=== PATIENT | female | born 1985 | race Caucasian/White ===

== ENCOUNTER → 2016-12-25 | Outpatient (CLI) | payer BC ==
[~2016-12-25] MED LIST: ESCI1TAB10 PO; FEXO1TAB58 PO; FEXO5TAB2 PO; HYDR-5688 PO; IBUP1CAP9 PO; LORA-741 PO; LYSI500C2 PO; MULT-506 PO; OPTIRAY 320 IV PRN; VALA500T60 PO; VENL150C56 PO; lysine PO
--- NOTE | 2016-12-25 14:30 | DIAGNOSTIC IMAGING REPORT ---
CT OF THE PELVIS WITH CONTRAST CT DOSE: 850.15 mGy.cm CLINICAL HISTORY: Right groin pain. Right leg numbness following schwannoma resection. TECHNIQUE: Axial images of the pelvis and hips were obtained following intravenous injection of 87 cc of Optiray 320 IV. COMPARISON STUDY: CT of the right hip August 23, 2016. FINDINGS: There is a 3 mm calculus within the lower pole of the left kidney. No ureteral calculi are identified. There is a dominant follicle within the left ovary. There are expected postsurgical findings within the right inguinal region. The right inguinal lesion shown on exam of August 23, 2016 has been resected. No residual mass identified by CT. No enlarged pelvic or inguinal lymph nodes are identified. The ovaries are not enlarged. Skeletal structures are unremarkable. A marker was placed on the skin at site of palpable abnormality. There is a corresponding 1.2 cm subcutaneous lesion of the right labia majora shown on image 316 of [id number]. This likely reflects the palpable abnormality. IMPRESSION: 1. Expected findings following resection of right inguinal mass. No residual mass identified by CT. 2. 1.2 cm subcutaneous lesion of the right labia majora which reflects the palpable abnormality. This subcutaneous lesion is indeterminate and clinical follow up to ensure stability/resolution is recommended. This could reflect a cyst or solid lesion. Electronically signed by: Henry Bruno M.D. 12/25/2016 2:29 PM Dictated Date/Time: 12/25/2016 1:20 PM
== END | disposition home or self-care (01) ==
LOC: C.CTS 12:16
PROVIDERS: ATTEND Surgery
DX: R20.0 Anesthesia of skin (principal); R10.30 Lower abdominal pain, unspecified; S84.90XA Injury of unspecified nerve at lower leg level, unspecified leg, initial encounter; X58.XXXA Exposure to other specified factors, initial encounter

== ENCOUNTER → 2017-01-12 | Day surgery (SDC) | payer BC ==
[2017-01-11 10:10] VITALS: Ht 170.2 cm; Wt 97.7 kg
[~2017-01-12] VITALS: Ht 170.2 cm; Wt 97.7 kg
[~2017-01-12] MED LIST changes: +ATROPINE SULFATE 0.1 MG/ML 5ML SYR IV PRN; +BUPIVACAINE/EPINEPHRINE 0.5% MPF 1:200,000 30 ML VIAL ONE; +DEXAMETHASONE SOD INJ 4 MG/ML VIAL IV PRN; +DEXAMETHASONE SOD INJ 4 MG/ML VIAL ONE; -ESCI1TAB10 PO; +EpHEDrine SULFATE INJ 50 MG/ML AMP IV PRN; +FENTANYL CITRATE INJ 50 MCG/1 ML 2 ML VIAL IV PRN; +FENTANYL CITRATE INJ 50 MCG/1 ML 2 ML VIAL ONE; -FEXO5TAB2 PO; +HYDROCODONE/ACETAMOPHEN 5/325MG TAB PO PRN; -IBUP1CAP9 PO; +KETOROLAC TROMETHAMINE 30 MG/ML VIAL IV. PRN; +LABETALOL HCL IV 5 MG/ML 20ML IV PRN; +LACTATED RINGER'S 1000ML 1,000 ML IV SCH; +LIDOCAINE HCL 2% 2 ML VIAL (20MG/ML) ONE; +METOCLOPRAMIDE HCL INJ 5 MG/ML 2 ML VIAL IV PRN; +MIDAZOLAM HCL 1 MG/ML 2ML VIAL ONE; +MoRPHine SULFATE 10 MG/ML CARP/VIAL IV PRN; +ONDANSETRON INJ 2 MG/ML 2 ML VIAL IV PRN; +ONDANSETRON INJ 2 MG/ML 2 ML VIAL ONE; -OPTIRAY 320 IV PRN; +PHENYLEPHRINE 100MCG/ML 5ML SYR IV PRN; +PROPOFOL IV EMULSION 10 MG/ML 20 ML VIAL IV ONE; +SILVER SULFADIAZINE 1% CR 50 GM JAR EXT ONE; +SODIUM CHLORIDE 0.9% 1000ML 1,000 ML IV SCH; -lysine PO
[2017-01-12] MEDS: CLINDAMYCIN PHOS 150 MG/ML 2 ML VIAL IV SCH ×3 (10:24→11:16)
--- NOTE | 2017-01-12 11:50 | History & Physical Bridge Note ---
H&P Re-Evaluation Bridge Note: I have examined the patient, reviewed the History & Physical and in the interval since the performance of the History & Physical I have noted the following changes of clinical significance: pt noted a painful nevi on her right upper back that she would like to have excised as well. otherwise no changes.
--- NOTE | 2017-01-12 11:54 | Discharge Instructions ---
Discharge Instructions Date of Service Jan 12, 2017. Admission Reason for Admission: Labial Cyst, Skin Nevi Discharge Discharge Diagnosis / Problem: Labial Cyst, Skin Nevi Discharge Goals Goal(s): Decrease discomfort, Improve function Activity Recommendations Activity Limitations: as noted below Lifting Limitations: no more than 10 pounds Exercise/Sports Limitations: until after follow-up appointment May Resume Sexual Activity: after follow-up appointment Shower/Bathe: tomorrow . Instructions / Follow-Up Instructions / Follow-Up Please follow-up with Dr. Gates in the office in 1-2 weeks. Any questions or concerns please call the office at [phone]. Current Hospital Diet Patient's current hospital diet: Discharge Diet Recommended Diet: Regular Diet Pending Studies Studies pending at discharge: no Medical Emergencies . Who to Call and When: Medical Emergencies: If at any time you feel your situation is an emergency, please call 911 immediately. . Non-Emergent Contact Non-Emergency issues call your: Primary Care Provider, Surgeon Call Non-Emergent contact if: temperature is above 101.5, your pain is not controlled, wound has increased drainage, wound has increased redness . "Provider Documentation" section prepared by Kaykay Shelton. VTE Core Measure Inpt VTE Proph given/why not?: Unfractionated heparin SQ, SCD's
--- NOTE | 2017-01-12 12:58 | [facility] Operative Report ---
Operative Report Operative Date Jan 12, 2017. Pre-Operative Diagnosis Groin Cyst, Back Nevi, Multiple Skin Tags Post-Operative Diagnosis 1 cm back nevi; 2 cm cyst right groin; nevi left thigh; multiple small skin Procedure(s) Performed excision of back nevi, right groin nevi, left thigh nevi and multiple groin skin tages Surgeon Dr. Gates Finance Administrator Surgeon(s) Sung Shelton PA-C Estimated Blood Loss 5ml Findings as above. all benign appearing tags/cysts Specimens A. Right Back Nevi B. Right Groin Cyst C. Left Thigh Mole Anesthesia LMA Complication(s) None Disposition Recovery Room / PACU I attest to the content of the Intraoperative Record and any orders documented therein. Any exceptions are noted below.
--- NOTE | 2017-01-12 13:01 | Medical Student: [facility] ---
Immediate Operative Summary Operative Date Jan 12, 2017. Pre-Operative Diagnosis Right Groin Cyst, Perineal skin tags, Right Back Nevi, Left thigh mole Post-Operative Diagnosis Same Procedure(s) Performed Excision of right groin cyst, perineal skin tags, left thigh mole and right back nevi. Surgeon Dr. Gates Training Development Manager Surgeon(s) None Estimated Blood Loss 5 cc Findings Right groin cyst, perineal skin tags, right back nevi, left thigh mole Fluids (cc crystalloids) 1,000 cc Specimens Left Thigh Mole Right Back Nevi Right Groin Cyst Drains None Anesthesia General/LMA Complication(s) None Disposition Recovery Room / PACU
--- NOTE | 2017-01-12 13:14 | OPERATIVE REPORT ---
DATE OF OPERATION: 01/12/2017 PREOPERATIVE DIAGNOSIS: Back nevi, a right groin cyst, a left groin nevi and multiple skin tags in the groin area. POSTOPERATIVE DIAGNOSIS: Same. PROCEDURE: Excision of all of the above. SURGEON: Dr. Gates. SENIOR MANUFACTURING TECHNICIAN: Kaykay Shelton PA-C. ESTIMATED BLOOD LOSS: Approximately 5 mL. COMPLICATIONS: No immediate. ANESTHESIA: General laryngeal mask airway. DESCRIPTION OF PROCEDURE: After informed consent was obtained, the patient was taken to the operating suite and placed in supine position. After successful placement of laryngeal mask airway, we began by rolling the patient placing a beanbag under her right hip, exposing the right upper back. We sterilely prepped and draped in usual fashion. A 10 blade scalpel was used to make a small ellipse of skin around the visible nevi. Sharp knife dissection was used to remove it full thickness and send it to pathology. Wound was irrigated and closed using 3-0 nylon in simple interrupted fashion. Some Marcaine was injected around the area followed by a sterile dressing. We then repositioned the patient back into a prone position with the legs in a frogleg position. We sterilely prepped and draped the entire groin region. Began with a small skin tag which I was able to excise using a 15 blade scalpel and placed a couple interrupted 4-0 Prolene sutures to close it primarily. I then made an ellipse around a large soft tissue cyst in the right groin region. We again removed the full thickness and intact. I irrigated the wound and closed it using simple interrupted 4-0 Prolene. There was also an abnormal appearing skin mole in the left inner thigh area. Same technique, I used ellipse elliptical incision around it, removed the full thickness and closed it primarily using 4-0 Prolene in simple interrupted fashion. There were then multiple small soft tissue skin tags and small little skin cysts. I used cautery to simply fulgurate them. None of them required suturing, etc. We then placed some Silvadene cream over the burned areas, injected the rest with Marcaine with epinephrine for postoperative analgesia. Sterile dressing was applied. The patient was awakened, extubated, and transferred to recovery in stable condition. I attest to the content of the Intraoperative Record and any orders documented therein. Any exceptio ns are noted below.
[2017-01-12 13:36] VITALS: TEMP 37
[2017-01-12 13:56] VITALS: BP 134/86; PULSE 65; O2SAT 100
--- NOTE | 2017-01-12 14:01 | Anesthesia Progress Nt - [facility] ---
Anesthesia Post Op Note Date & Time Jan 12, 2017 at 14:01 Vital Signs Pain Intensity: 2 Vital Signs Past 12 Hours Date Time Temp Pulse Resp B/P Pulse Ox O2 Delivery O2 Flow Rate FiO2 01/12/17 13:56 65 16 134/86 100 Room Air 01/12/17 13:38 59 21 100 01/12/17 13:38 57 21 01/12/17 13:36 37.0 66 20 144/82 100 Room Air 01/12/17 13:35 133/81 01/12/17 13:33 54 15 01/12/17 13:33 53 15 100 01/12/17 13:30 144/84 01/12/17 13:28 36.8 59 24 137/87 Room Air 01/12/17 13:28 55 12 100 01/12/17 13:28 54 12 01/12/17 13:27 67 15 01/12/17 13:27 67 15 100 01/12/17 13:25 137/87 01/12/17 13:22 56 16 100 01/12/17 13:22 57 16 01/12/17 13:21 65 18 01/12/17 13:21 67 18 100 01/12/17 13:20 134/87 01/12/17 13:16 53 15 100 01/12/17 13:16 53 15 01/12/17 13:15 52 17 01/12/17 13:15 52 17 01/12/17 13:15 52 17 130/89 100 01/12/17 13:15 52 17 130/89 100 01/12/17 13:10 65 16 136/86 100 01/12/17 13:10 67 16 01/12/17 13:10 65 16 136/86 100 01/12/17 13:10 67 16 01/12/17 13:05 63 14 01/12/17 13:05 60 14 142/86 97 01/12/17 13:05 63 14 01/12/17 13:05 60 14 142/86 97 01/12/17 13:00 59 15 139/85 100 01/12/17 13:00 60 15 01/12/17 13:00 59 15 139/85 100 01/12/17 13:00 60 15 01/12/17 12:55 36.6 63 20 128/79 100 Mask 6 01/12/17 12:55 61 01/12/17 12:55 61 128/79 99 01/12/17 12:55 61 01/12/17 12:55 61 128/79 99 01/12/17 10:09 36.9 62 16 127/85 100 Room Air Notes Mental Status: alert / awake / arousable, participated in evaluation Pt Amnestic to Procedure: Yes Nausea / Vomiting: adequately controlled Pain: adequately controlled Airway Patency, RR, SpO2: stable & adequate BP & HR: stable & adequate Hydration State: stable & adequate Anesthetic Complications: no major complications apparent
== END | disposition home or self-care (01) ==
LOC: X.SURG 08:50
PROVIDERS: ATTEND Surgery
DX: D22.9 Melanocytic nevi, unspecified (principal); L72.3 Sebaceous cyst; D23.70 Other benign neoplasm of skin of unspecified lower limb, including hip; D36.10 Benign neoplasm of peripheral nerves and autonomic nervous system, unspecified; F41.9 Anxiety disorder, unspecified; N76.0 Acute vaginitis

== ENCOUNTER 2017-01-29 09:50 | Emergency (ER) | payer BC ==
[~2017-01-29] VITALS: Ht 170.2 cm; Wt 97.6 kg
[~2017-01-29 09:50] MED LIST changes: -ATROPINE SULFATE 0.1 MG/ML 5ML SYR IV PRN; -BUPIVACAINE/EPINEPHRINE 0.5% MPF 1:200,000 30 ML VIAL ONE; -DEXAMETHASONE SOD INJ 4 MG/ML VIAL IV PRN; -DEXAMETHASONE SOD INJ 4 MG/ML VIAL ONE; -EpHEDrine SULFATE INJ 50 MG/ML AMP IV PRN; -FENTANYL CITRATE INJ 50 MCG/1 ML 2 ML VIAL IV PRN; -FENTANYL CITRATE INJ 50 MCG/1 ML 2 ML VIAL ONE; -HYDR-5688 PO; -HYDROCODONE/ACETAMOPHEN 5/325MG TAB PO PRN; -KETOROLAC TROMETHAMINE 30 MG/ML VIAL IV. PRN; -LABETALOL HCL IV 5 MG/ML 20ML IV PRN; -LACTATED RINGER'S 1000ML 1,000 ML IV SCH; -LIDOCAINE HCL 2% 2 ML VIAL (20MG/ML) ONE; -METOCLOPRAMIDE HCL INJ 5 MG/ML 2 ML VIAL IV PRN; -MIDAZOLAM HCL 1 MG/ML 2ML VIAL ONE; -MoRPHine SULFATE 10 MG/ML CARP/VIAL IV PRN; -ONDANSETRON INJ 2 MG/ML 2 ML VIAL IV PRN; -ONDANSETRON INJ 2 MG/ML 2 ML VIAL ONE; -PHENYLEPHRINE 100MCG/ML 5ML SYR IV PRN; -PROPOFOL IV EMULSION 10 MG/ML 20 ML VIAL IV ONE; -SILVER SULFADIAZINE 1% CR 50 GM JAR EXT ONE; -SODIUM CHLORIDE 0.9% 1000ML 1,000 ML IV SCH; -VENL150C56 PO
[2017-01-29 10:04] VITALS: TEMP 36.8; Ht 170.2 cm; Wt 97.6 kg
[2017-01-29 11:26] LABS: HEMATOCRIT 44.5 % (37-47); MEAN CELL VOLUME 96.7 fL (80-100); MEAN CORPUSCULAR HEMOGLOBIN 31.1 pg (25-34); MEAN CORPUSCULAR HGB CONC 32.1 g/dl (32-36); MEAN PLATELET VOLUME 9.7 fL (7.4-10.4); PLATELET COUNT 244 K/uL (130-400); WHITE BLOOD COUNT 11.56 K/uL (4.8-10.8)
[2017-01-29 11:33] LABS: BUN/CREATININE RATIO 14.8 (10-20); CREATININE 0.82 mg/dl (0.60-1.20); POTASSIUM 3.8 mmol/L (3.5-5.1)
[2017-01-29 11:37] LABS: URINE APPEARANCE CLEAR (CLEAR); URINE BILIRUBIN NEG (NEG); URINE COLOR YELLOW; URINE NITRITE NEG (NEG); URINE SPECIFIC GRAVITY 1.013 (1.000-1.030); UROBILINOGEN NEG (NEG)
--- NOTE | 2017-01-29 11:38 | EMERGENCY ROOM VISIT NOTE ---
History Report prepared by Ken: Tyler Peace Under the Supervision of: Dr. Kenya Pang D.O. First contact with patient: 10:53 Chief Complaint: ED VAG BLEEDING Stated Complaint: DIZZINESS,WEAKNESS Nursing Triage Summary: States increased bleeding with her cycle and feels dizzy. History of Present Illness The patient is a 31 year old female who presents to the Emergency Room with complaints of persistent vaginal bleeding that began one week ago. The patient states that she started her normal menstrual cycle one week ago. She states that typically it doesn't last longer than one week, and additionally notes that her cycle was heavier than normal. The patient states that the bleeding has slowed, but notes that she was still experiencing light bleeding. The patient states that this morning she had intercourse and after she developed gushing blood and passed one large clot. She states that she became weak and dizzy. The patient states that this has happened in the past, but denies it ever being this severe. She denies any history of anemia or previous blood transfusion. The patient denies any abdominal pain. She notes a recent sore throat and stuffy nose. The patient notes a history of a tubal ligation. Source of History: patient Onset: one week ago Position: other (vaginal) Quality: other (bleeding) Timing: other (persistent) Associated Symptoms: + weakness, No abdominal pain Note: Associated Symptoms: Dizziness Review of Systems See HPI for pertinent positives & negatives. A total of 10 systems reviewed and were otherwise negative. Past Medical & Surgical Surgical Problems: (1) Tubal ligation status Family History Diabetes mellitus Hypertension Social History Smoking Status: Never Smoker Alcohol Use: occasionally Marital Status: Housing Status: lives with family Occupation Status: employed Current/Historical Medications Scheduled Fexofenadine-Pseudoephedrine (Joyce-D 24 Hour Allergy), 1 TAB PO QAM Lysine (Lysine), 1 CAP PO QAM Multivitamin (Multivitamin), 1 TAB PO QAM Valacyclovir (Valtrex), 1 TAB PO QAM Scheduled PRN Lorazepam (Ativan), 0.5 MG PO BID PRN for Anxiety Allergies Coded Allergies: Sulfa Antibiotics (Verified Allergy, Intermediate, ITCHING, 01/12/17) Sulfamethoxazole w/Trimethoprim (Verified Allergy, Intermediate, ITCHING, 01/12/17) Amoxicillin (Verified Adverse Reaction, Unknown, doesnt work, 01/12/17) Penicillins (Verified Adverse Reaction, Unknown, "doesn't do anything for me", 01/12/17) Physical Exam Vital Signs Date Time Temp Pulse Resp B/P Pulse Ox O2 Delivery O2 Flow Rate FiO2 01/29/17 15:06 65 18 136/73 100 Room Air 01/29/17 13:50 58 18 130/53 100 01/29/17 11:31 67 19 116/82 100 Room Air 01/29/17 11:29 67 19 116/82 100 Room Air 70 126/79 94 143/84 01/29/17 10:04 36.8 76 16 153/95 98 Room Air Physical Exam HEENT: Head - normocephalic and atraumatic Pupils are equal, round, and reactive to light. Extraocular eye muscles are intact, conjunctival pallor, and sclera are anicteric. Nose - moist nasal mucosa without discharge. Mouth - moist buccal mucosa. Oropharynx is nonerythematous and there is no tonsillar exudate or edema noted. Neck: Supple; no JVD, nuchal rigidity, cervical lymphadenopathy. Heart: Regular rate and rhythm. There is a normal S1 and S2 with no murmurs, clicks, or gallops appreciated. Lungs: Clear to auscultation bilaterally with no wheezes, rales, or rhonchi. Abdomen: Soft, completely nontender, nondistended, with good bowel sounds. There are no palpable pulsatile masses or hepatosplenomegaly. There is no guarding, rigidity, or rebound noted. Extremities: No evidence of cyanosis, clubbing, or edema. There are easily palpable peripheral pulses. Skin: Skin appears pale, warm and dry with good turgor and no rashes. Medical Decision & Procedures ER Provider Diagnostic Interpretation: US results as stated below per my review and radiologist interpretation: PELVIC ULTRASOUND CLINICAL HISTORY: Heavy vaginal bleeding. COMPARISON STUDY: CT of the pelvis December 25, 2016. TECHNIQUE: Transabdominal and transvaginal sonography of the pelvis was performed. FINDINGS: The uterus measures 8.7 x 4.8 x 5.6 cm. The endometrium is normal in thickness, measuring 4 mm. A few nabothian cysts are noted. There is a possible small 1.5 cm right fundal fibroid. This is likely mural in location. The ovaries are sonographically normal. There is no free fluid. IMPRESSION: 1. Normal endometrial thickness of 4 mm. 2. Possible small 1.5 cm right fundal fibroid, likely mural in location. 3. Unremarkable sonographic appearance of the ovaries. Electronically signed by: Henry Bruno M.D. 01/29/2017 1:38 PM Dictated Date/Time: 01/29/2017 1:31 PM Laboratory Results 01/29/17 10:30 01/29/17 10:30 Test 01/29/17 10:20 01/29/17 10:30 Urine Color YELLOW Urine Appearance CLEAR (CLEAR) Urine pH 6.0 (4.5-7.5) Urine Specific Silver 1.013 (1.000-1.030) Urine Protein NEG (NEG) Urine Glucose (UA) NEG (NEG) Urine Ketones NEG (NEG) Urine Occult Blood 2+ (NEG) Urine Nitrite NEG (NEG) Urine Bilirubin NEG (NEG) Urine Urobilinogen NEG (NEG) Urine Leukocyte Esterase SMALL (NEG) Urine WBC (Auto) 1-5 /hpf (0-5) Urine RBC (Auto) >30 /hpf (0-4) Urine Hyaline Casts (Auto) 0 /lpf (0-5) Urine Epithelial Cells (Auto) 5-10 /lpf (0-5) Urine Bacteria (Auto) NEG (NEG) Urine Test NEG (NEG) Red Blood Count 4.60 M/uL (4.2-5.4) Mean Corpuscular Volume 96.7 fL (80-100) Mean Corpuscular Hemoglobin 31.1 pg (25-34) Mean Corpuscular Hemoglobin Concent 32.1 g/dl (32-36) RDW Standard Deviation 48.9 fL (36.4-46.3) RDW Coefficient of Variation 13.8 % (11.5-14.5) Mean Platelet Volume 9.7 fL (7.4-10.4) Anion Gap 7.0 mmol/L (3-11) Est Creatinine Clear Calc Drug Dose 117.1 ml/min Estimated GFR () 109.0 Estimated GFR (Non- 94.0 BUN/Creatinine Ratio 14.8 (10-20) Calcium Level 9.0 mg/dl (8.5-10.1) Laboratory results per my review. ED Course 1119: Past medical records reviewed. The patient was evaluated in room C3. A complete history and physical exam was performed. IV lock was initiated and labs were drawn as above. Orthostatic vital signs revealed that the blood pressure didn't' drop with standing. 1240:I reevaluated the patient and she has had no further heavy bleeding and she is feeling fine. I reviewed the results and laboratory studies with her. She is going to have a pelvic ultrasound. 1450: I reevaluated the patient and she is doing well. I discussed the exam findings with her and I discussed he treatment plan. She verbalized complete understanding and agreement. She is ready to go home. Medical Decision The patient is a 31 year old female who presents to the ED with vaginal bleeding. Differential diagnosis includes anemia, dysfunctional uterine bleeding , uterine fibroid, . Lab interpretation: white blood cell count 11.5, stable H&H, normal renal function, slightly low glucose 67,urine is negative, urinalysis showed blood. This is a 31-year-old male patient is had some irregular vaginal bleeding over the past couple days that became much heavier today after having intercourse. The patient's vital signs are stable. She was not anemic. Ultrasound showed a possible fibroid but no other obvious or concerning findings. The patient's test was negative. I've asked patient to follow-up with her smearer. If the bleeding becomes heavy again she should return to the ER. Impression Primary Impression: Abnormal uterine bleeding Scribe Attestation The scribe's documentation has been prepared under my direction and personally reviewed by me in its entirety. I confirm that the note above accurately reflects all work, treatment, procedures, and medical decision making performed by me. Departure Information Dispostion Home / Self-Care Referrals Jerman Olivares M.D. (PCP) Forms HOME CARE DOCUMENTATION FORM, IMPORTANT VISIT INFORMATION, WORK / SCHOOL INSTRUCTIONS Patient Instructions [facility] [place] [facility] Additional Instructions Rest. No strenuous activity. Follow up with [facility] obstetrics gyn. Return to the ER if bleeding heavy again.
[2017-01-29 11:39] LABS: MANUAL MICROSCOPIC REQUIRED? NO; REVIEW REQ? NO
--- NOTE | 2017-01-29 13:39 | DIAGNOSTIC IMAGING REPORT ---
PELVIC ULTRASOUND CLINICAL HISTORY: Heavy vaginal bleeding. COMPARISON STUDY: CT of the pelvis December 25, 2016. TECHNIQUE: Transabdominal and transvaginal sonography of the pelvis was performed. FINDINGS: The uterus measures 8.7 x 4.8 x 5.6 cm. The endometrium is normal in thickness, measuring 4 mm. A few nabothian cysts are noted. There is a possible small 1.5 cm right fundal fibroid. This is likely mural in location. The ovaries are sonographically normal. There is no free fluid. IMPRESSION: 1. Normal endometrial thickness of 4 mm. 2. Possible small 1.5 cm right fundal fibroid, likely mural in location. 3. Unremarkable sonographic appearance of the ovaries. Electronically signed by: Henry Bruno M.D. 01/29/2017 1:38 PM Dictated Date/Time: 01/29/2017 1:31 PM
[2017-01-29 15:06] VITALS: BP 136/73; PULSE 65; O2SAT 100
== END 2017-01-29 15:10 | disposition home or self-care (01) ==
LOC: C.EDB 09:52 → C.EDC 15:10
DX: N93.9 Abnormal uterine and vaginal bleeding, unspecified (principal); Z98.51 Tubal ligation status; Z83.3 Family history of diabetes mellitus; Z82.49 Family history of ischemic heart disease and other diseases of the circulatory system; Z79.899 Other long term (current) drug therapy

== ENCOUNTER 2017-04-17 15:04 | Emergency (ER) | payer BC ==
[~2017-04-17] VITALS: Ht 170.2 cm; Wt 109.0 kg
[2017-04-17 15:09] VITALS: Ht 170.2 cm; Wt 109.0 kg
[2017-04-17] MEDS ORDERED: SODIUM CHLORIDE 0.9% 1000ML 1,000 ML IV STA (15:34)
[2017-04-17] MEDS ORDERED: VENL150C56 PO (15:54)
[2017-04-17 16:02] LABS: BASO % 0.1 %; BASO ABS # 0.01 K/uL (0-0.2); COMPLETE YES; EOS % 1.3 %; HEMATOCRIT 43.2 % (37-47); IG% 0.1 %; LYMPH % 25.4 %; LYMPH ABS # 2.02 K/uL (1.2-3.4); MEAN CELL VOLUME 96.9 fL (80-100); MEAN CORPUSCULAR HEMOGLOBIN 32.1 pg (25-34); MEAN CORPUSCULAR HGB CONC 33.1 g/dl (32-36); MEAN PLATELET VOLUME 9.8 fL (7.4-10.4); NEUT % 62.1 %; PLATELET COUNT 244 K/uL (130-400); RED BLOOD COUNT 4.46 M/uL (4.2-5.4); WHITE BLOOD COUNT 7.94 K/uL (4.8-10.8)
[2017-04-17 16:11] LABS: PARTIAL THROMBOPLASTIN RATIO 1.1; PROTHROMBIN TIME (PATIENT) 10.7 SECONDS (9.0-12.0)
[2017-04-17 16:25] LABS: BUN/CREATININE RATIO 14.7 (10-20); CALCIUM 8.7 mg/dl (8.5-10.1); CREATININE 0.76 mg/dl (0.60-1.20); POTASSIUM 3.8 mmol/L (3.5-5.1)
[2017-04-17 16:26] LABS: PREG INTERNAL NEGATIVE QC NEG CLEAR BACKGROUND; PREG INTERNAL POSITIVE QC POS CONTROL LINE
--- NOTE | 2017-04-17 17:18 | DIAGNOSTIC IMAGING REPORT ---
PELVIC ULTRASOUND CLINICAL HISTORY: Heavy vaginal bleeding, recent IUD placement. COMPARISON STUDY: Pelvic ultrasound January 29, 2017. TECHNIQUE: Transabdominal and transvaginal sonography of the pelvis was performed. FINDINGS: The uterus measures 11 x 5.4 x 6.8 cm. Endometrium measures 1.3 cm in thickness. An intrauterine device is not identified on this exam. A 1.2 cm right fundal lesion suggests a fibroid. This is unchanged since exam of January 29, 2017. The right ovary is sonographically normal. The left ovary measures 4.7 x 3.1 x 4.3 cm. Note is made of a 2.5 cm echogenic lesion arising from the left ovary. This contains no color flow. This is new since exam of January 29, 2017. There is trace free fluid. IMPRESSION: 1. No intrauterine device identified. A KUB could be obtained. 2. 2.5 cm echogenic lesion arising from the left ovary which is new since exam of January 29, 2017. This is nonspecific although likely benign. A follow-up ultrasound in 6 weeks to ensure resolution is recommended. 3. No change in a suspected 1.2 cm right fundal fibroid. Electronically signed by: Henry Bruno M.D. 04/17/2017 5:17 PM Dictated Date/Time: 04/17/2017 5:07 PM
--- NOTE | 2017-04-17 17:25 | EMERGENCY ROOM VISIT NOTE ---
History First contact with patient: 15:15 Chief Complaint: ED VAG BLEEDING Stated Complaint: BLEEDING History of Present Illness The patient is a 32 year old female who presents to the Emergency Room with complaints of heavy vaginal bleeding. The patient states that she has had heavy bleeding for the past 24 hours. She is changing a tampon and pad every 1- 1.5 hours. She states she has been passing clots of blood. The patient reports that she had a Mirena IUD inserted one month ago. She had this inserted due to having long periods of 12-14 days every month. She has had a Mirena before and had no issues with it. She has a history of a tubal ligation. She states that since the Mirena was inserted, she had bleeding daily which she states is comparable to a normal menstrual period. She reports some mild pelvic cramping, but no severe pain. She denies urinary symptoms, fevers/chills, nausea or vomiting. She sees [facility]. She states she called them today and they referred her here. She denies any history of bleeding disorders. Review of Systems A complete 10 point review of systems was reviewed with the patient with pertinent positives and negatives as per history of present illness. All else were negative. Past Medical/Surgical History Surgical Problems: (1) Tubal ligation status Family History Diabetes mellitus Hypertension Social History Smoking Status: Never Smoker Alcohol Use: occasionally Marital Status: Housing Status: lives with family Occupation Status: employed Current/Historical Medications Scheduled Fexofenadine-Pseudoephedrine (Joyce-D 24 Hour Allergy), 1 TAB PO QAM Lysine (Lysine), 1 CAP PO QAM Multivitamin (Multivitamin), 1 TAB PO QAM Valacyclovir (Valtrex), 1 TAB PO QAM Venlafaxine Hcl (Effexor Extended Rel), 150 MG PO DAILY Scheduled PRN Lorazepam (Ativan), 0.5 MG PO BID PRN for Anxiety Allergies Coded Allergies: Sulfa Antibiotics (Verified Allergy, Intermediate, ITCHING, 04/17/17) Sulfamethoxazole w/Trimethoprim (Verified Allergy, Intermediate, ITCHING, 04/17/17) Amoxicillin (Verified Adverse Reaction, Unknown, doesnt work, 04/17/17) Penicillins (Verified Adverse Reaction, Unknown, "doesn't do anything for me", 04/17/17) Physical Exam Vital Signs Date Time Temp Pulse Resp B/P (MAP) Pulse Ox O2 Delivery O2 Flow Rate FiO2 04/17/17 18:46 36.7 69 18 155/94 100 04/17/17 18:18 69 18 155/94 100 Room Air 04/17/17 15:09 36.7 76 16 147/74 100 Physical Exam VITALS: Vitals are noted on the nurse's note and reviewed by myself. Vital signs stable. GENERAL: This is a 32-year-old female, in no acute distress, nondiaphoretic, well-developed well-nourished. SKIN: The skin is normal in color, no pallor. EYES: Pupils equal round and reactive to light and accommodation. MOUTH: Mucous membranes moist. HEART: Regular rate and rhythm without murmurs gallops or rubs. LUNGS: Clear to auscultation bilaterally without wheezes, rales or rhonchi. ABDOMEN: Soft, nontender to palpation. PELVIC: External genitalia unremarkable. There is a small amount of blood within the vaginal vault. No active bleeding from the cervix. IUD strings are not identified. NEURO: Patient was alert and oriented to person place and time. Medical Decision & Procedures ER Provider Diagnostic Interpretation: PELVIC ULTRASOUND FINDINGS: The uterus measures 11 x 5.4 x 6.8 cm. Endometrium measures 1.3 cm in thickness. An intrauterine device is not identified on this exam. A 1.2 cm right fundal lesion suggests a fibroid. This is unchanged since exam of January 29, 2017. The right ovary is sonographically normal. The left ovary measures 4.7 x 3.1 x 4.3 cm. Note is made of a 2.5 cm echogenic lesion arising from the left ovary. This contains no color flow. This is new since exam of January 29, 2017. There is trace free fluid. IMPRESSION: 1. No intrauterine device identified. A KUB could be obtained. 2. 2.5 cm echogenic lesion arising from the left ovary which is new since exam of January 29, 2017. This is nonspecific although likely benign. A follow-up ultrasound in 6 weeks to ensure resolution is recommended. 3. No change in a suspected 1.2 cm right fundal fibroid. KUB FINDINGS: There is no pathologic bowel dilatation. There is a nonspecific right pelvic basin calcification likely representing a phlebolith. No IUD is visualized. IMPRESSION: 1. No IUD is visualized 2. No evidence of pathologic bowel dilatation Laboratory Results 04/17/17 15:50 Red Blood Count 4.46, Mean Corpuscular Volume 96.9, Mean Corpuscular Hemoglobin 32.1, Mean Corpuscular Hemoglobin Concent 33.1, Mean Platelet Volume 9.8, Neutrophils (%) (Auto) 62.1, Lymphocytes (%) (Auto) 25.4, Monocytes (%) (Auto) 11.0, Eosinophils (%) (Auto) 1.3, Basophils (%) (Auto) 0.1, Neutrophils # (Auto ) 4.93, Lymphocytes # (Auto) 2.02, Monocytes # (Auto) 0.87, Eosinophils # (Auto ) 0.10, Basophils # (Auto) 0.01 04/17/17 15:50 Test 04/17/17 15:50 White Blood Count 7.94 K/uL (4.8-10.8) Red Blood Count 4.46 M/uL (4.2-5.4) Hemoglobin 14.3 g/dL (12.0-16.0) Hematocrit 43.2 % (37-47) Mean Corpuscular Volume 96.9 fL (80-100) Mean Corpuscular Hemoglobin 32.1 pg (25-34) Mean Corpuscular Hemoglobin Concent 33.1 g/dl (32-36) Platelet Count 244 K/uL (130-400) Mean Platelet Volume 9.8 fL (7.4-10.4) Neutrophils (%) (Auto) 62.1 % Lymphocytes (%) (Auto) 25.4 % Monocytes (%) (Auto) 11.0 % Eosinophils (%) (Auto) 1.3 % Basophils (%) (Auto) 0.1 % Neutrophils # (Auto) 4.93 K/uL (1.4-6.5) Lymphocytes # (Auto) 2.02 K/uL (1.2-3.4) Monocytes # (Auto) 0.87 K/uL (0.11-0.59) Eosinophils # (Auto) 0.10 K/uL (0-0.5) Basophils # (Auto) 0.01 K/uL (0-0.2) RDW Standard Deviation 48.0 fL (36.4-46.3) RDW Coefficient of Variation 13.6 % (11.5-14.5) Immature Granulocyte % (Auto) 0.1 % Immature Granulocyte # (Auto) 0.01 K/uL (0.00-0.02) Prothrombin Time 10.7 SECONDS (9.0-12.0) Prothromb Time International Ratio 1.0 (0.9-1.1) Activated Partial Thromboplast Time 28.0 SECONDS (21.0-31.0) Partial Thromboplastin Ratio 1.1 Anion Gap 4.0 mmol/L (3-11) Est Creatinine Clear Calc Drug Dose 132.7 ml/min Estimated GFR () 118.6 Estimated GFR (Non- 102.3 BUN/Creatinine Ratio 14.7 (10-20) Calcium Level 8.7 mg/dl (8.5-10.1) Human Chorionic Gonadotropin, Qual NEG (NEG) Medications Administered Medications (Trade) Dose Ordered Sig/Richard Route Start Time Stop Time Status Last Admin Dose Admin Sodium Chloride 1,000 ml @ 999 mls/hr Q1H1M STAT IV 04/17/17 15:34 04/17/17 16:34 DC 04/17/17 15:34 999 MLS/HR ED Course The patient was evaluated as above. Labs were drawn and IV access was obtained. Pelvic ultrasound was performed and read by radiology as above. KUB was ordered and performed. Patient was reevaluated and pelvic exam was performed. Case was discussed with Dr. Godinez of [facility]. She did view the KUB. She recommends that the patient follow-up in the office. Discharge instructions were reviewed with the patient. The patient verbalized understanding of my assessment and treatment plan and was discharged home in good condition. Medical Decision Differential diagnosis includes IUD migration, IUD dislodgment, fibroid, ectopic , among others. The patient is a 32-year-old female who presents today complaining of heavy vaginal bleeding. The patient does have a history of abnormal uterine bleeding in the past. She had an IUD placed 1 month ago. Patient is not anemic. Pelvic ultrasound was performed and was not able to identify the IUD. I also was not able to identify the IUD on pelvic exam. For this reason, a KUB was performed but also did not show an IUD. The patient may have dislodged the IUD , causing withdrawal bleeding. Case was discussed with [facility], who agreed that this was likely withdrawal bleeding and did not feel that an Aygestin taper was necessary at this time. Findings were discussed with the patient, who will follow-up with [facility] in the office this week. She was instructed to return here for worsening symptoms. Based on the patient's presentation and work up, I feel the patient is stable for outpatient treatment. The patient was educated to return to the emergency department for any worsening of their current condition or new/concerning symptoms. She will follow up with [facility]. Medication reconciliation: I attest that I have personally reviewed the patient 's current medication list. Blood Pressure Screening: Patient was found to have a slightly elevated blood pressure due to circumstances. I do not believe that the patient requires hypertension monitoring. Impression Primary Impression: Excessive vaginal bleeding Departure Information Dispostion Home / Self-Care Condition GOOD Referrals No Doctor, Assigned (PCP) Lindy Godinez, D.O. Patient Instructions My [facility] Additional Instructions Call [facility] tomorrow to schedule follow-up. Return here for worsening bleeding, dizziness, lightheadedness or passing out.
--- NOTE | 2017-04-17 18:11 | DIAGNOSTIC IMAGING REPORT ---
KUB CLINICAL HISTORY: Vaginal bleeding. Evaluate IUD position. COMPARISON STUDY: Abdominal ultrasound dated 04/17/2017 FINDINGS: There is no pathologic bowel dilatation. There is a nonspecific right pelvic basin calcification likely representing a phlebolith. No IUD is visualized. IMPRESSION: 1. No IUD is visualized 2. No evidence of pathologic bowel dilatation Electronically signed by: Elroy Martin M.D. 04/17/2017 6:10 PM Dictated Date/Time: 04/17/2017 6:09 PM
[2017-04-17 18:46] VITALS: BP 155/94; PULSE 69; TEMP 36.7; O2SAT 100
== END 2017-04-17 18:47 | disposition home or self-care (01) ==
LOC: C.EDB 15:06
DX: N93.8 Other specified abnormal uterine and vaginal bleeding (principal); Z98.51 Tubal ligation status; Z79.899 Other long term (current) drug therapy

== ENCOUNTER → 2017-11-09 | Outpatient (CLI) | payer BC ==
[~2017-11-09] MED LIST changes: +VENL150C56 PO
== END | disposition home or self-care (01) ==
LOC: C.PAPS 10:32
PROVIDERS: ATTEND Physician Assistant
DX: Z01.419 Encounter for gynecological examination (general) (routine) without abnormal findings (principal); Z79.890 Hormone replacement therapy

== ENCOUNTER → 2017-11-09 | Outpatient (CLI) | payer BC ==
[2017-11-09 16:39] LABS: HEP C IGG 13 YRS+OLDER_RFLX NEG (NEG)
== END | disposition home or self-care (01) ==
LOC: C.LAB1850 14:56
PROVIDERS: ATTEND Physician Assistant
DX: Z11.3 Encounter for screening for infections with a predominantly sexual mode of transmission (principal); Z11.4 Encounter for screening for human immunodeficiency virus [HIV]; Z11.8 Encounter for screening for other infectious and parasitic diseases; Z11.59 Encounter for screening for other viral diseases